=== PATIENT | female | born 1975 | race Caucasian/White ===

== ENCOUNTER 2020-10-22 21:53 | Emergency (ER) | payer OTHER ==
[~2020-10-22 21:53] MED LIST: MACROBID 100 M100 M1 PO
[2020-10-22 22:53] LABS: HEMOGLOBIN 13.8 gm/dl (12.3-15.3); RED BLOOD COUNT 5.1 M/UL (4.00-5.10); WHITE BLOOD COUNT 7.1 K/UL (4.5-11.0)
[2020-10-22] MEDS ORDERED: PERCOCET 5/325 T1 EA PO (23:35)
== END 2020-10-23 | disposition home or self-care (01) ==
LOC: ER1 21:53
PROVIDERS: Family Medicine
DX: S83.91XA Sprain of unspecified site of right knee, initial encounter (principal); V49.9XXA Car occupant (driver) (passenger) injured in unspecified traffic accident, initial encounter
CPT/HCPCS: 36415; 71045; 73502; 73564; 81001; 85025; 96372; 99283; J1885